=== PATIENT | female | born 1975 | race Caucasian/White ===

== ENCOUNTER 2018-02-08 10:53 | Emergency (ER) | payer BC ==
[~2018-02-08] VITALS: Ht 167.6 cm; Wt 82.0 kg
[2018-02-08 11:01] VITALS: BP 156/95; PULSE 73; RESP 24; TEMP 99; O2SAT 100
[2018-02-08 11:04] VITALS: BP 150/86; PULSE 72; RESP 24; TEMP 99; O2SAT 100
[2018-02-08] MEDS ORDERED: PRED20 PO (11:08)
[2018-02-08] MEDS ORDERED: GABA300C5 PO (11:08)
[2018-02-08] MEDS ORDERED: KETOROLAC TROMETHAMINE 30 MG/ML (IVP) VIAL IV PUSH ONE (11:30)
[2018-02-08] MEDS ORDERED: ORPHENADRINE INJ 60 MG/2 ML AMP IV ONE (11:30)
--- NOTE | 2018-02-08 11:42 | PD ---
HPI Chief Complaint: Back/ Neck Pain or Injury Time Seen by Provider: 11:18 Travel History International Travel<30 days: No Contact w/Intl Traveler<30days: No Traveled to known affect area: No History of Present Illness HPI Patient is a 42-year-old female presenting to the emergency department for evaluation of patient states it started Tuesday when she woke up. She denies any injury or trauma. She states she has a history. She has been on vacation and doing more walking than normal. She denies any bladder or bowel incontinence, no saddle paresthesia, no radiation of pain down her leg. Patient reports calling her doctor yesterday and being prescribed prednisone. She has taken 60 mg yesterday and 40 mg today. She is not taking any other anti -inflammatories or pain medication other than gabapentin at night which she normally takes. She denies any other medical history. Symptom onset was sudden , symptoms are severe in nature so much so that she called 911 and EMS had a difficult time getting her on the stretcher. Patient will not ambulate, she states that she cannot ambulate due to the pain. [facility] Past Medical History Diminished Hearing: No Medical other: Yes (TORN DISC HX OF) ?: Not LMP: 01/17/18 : 2 Para: 2 Tubal Ligation: Yes Past Surgical History Appendectomy: Yes Section: Yes (X 2) Gynecologic Surgery: Yes (C -SEC X 2) Social History Alcohol Use: No Tobacco Use: No Substance Use: No Allergies-Medications (Allergen,Severity, Reaction): Coded Allergies: No Known Allergies (Verified Allergy, Unknown, 02/08/18) Reported Meds & Prescriptions Reported Meds & Active Scripts Active Reported Prednisone 20 Mg Tab 20 Mg PO DAILY 40 MG twice a day x 3 days, then 20 MG daily x 3 days, then 10 MG daily x 3 days Gabapentin 300 Mg Cap 300 Mg PO HS Review of Systems Except as stated in HPI: all other systems reviewed are Neg Musculoskeletal: Positive: Myalgias, Cramping, Pain Physical Exam Narrative GENERAL: Well-developed, well-nourished, alert female. Appears uncomfortable, no acute distress. SKIN: Warm and dry. HEAD: Atraumatic. Normocephalic. EYES: Pupils equal and round. No scleral icterus. No injection or drainage. ENT: No nasal bleeding or discharge. Mucous membranes pink and moist. NECK: Trachea midline. No JVD. CARDIOVASCULAR: Regular rate and rhythm. RESPIRATORY: No accessory muscle use. Clear to auscultation. Breath sounds equal bilaterally. GASTROINTESTINAL: Abdomen soft, non-tender, nondistended. Hepatic and splenic margins not palpable. MUSCULOSKELETAL: Extremities without clubbing, cyanosis, or edema. No obvious deformities. Tenderness to palpation in paraspinal musculature in lumbar region , tenderness to lumbar spine. No step off noted. NEUROLOGICAL: Awake and alert. No obvious cranial nerve deficits. Motor grossly within normal limits. Five out of 5 muscle strength in the arms and legs. Normal speech. PSYCHIATRIC: Appropriate mood and affect; insight and judgment normal. Data Data Last Documented VS Vital Signs Date Time Temp Pulse Resp B/P (MAP) Pulse Ox O2 Delivery O2 Flow Rate FiO2 02/08/18 14:24 92 18 140/72 (94) 95 Room Air 02/08/18 11:04 99.0 Orders Orders Ketorolac Inj (Toradol Inj) (02/08/18 11:30) Orphenadrine Inj (Norflex Inj) (02/08/18 11:30) Ct Lumb Spine W/O Contrast (02/08/18 ) Ed Urine Pregnancytest Poc (02/08/18 11:25) Ketorolac Inj (Toradol Inj) (02/08/18 12:30) Orphenadrine Inj (Norflex Inj) (02/08/18 12:30) Acetamin-Hydrocod 325-7.5 Mg ([place] 7.5 (02/08/18 15:00) Ed Discharge Order (02/08/18 14:46) Lidocaine 5% Patch.12 Hr (Lidoderm 5% Pa (02/08/18 15:00) MDM Medical Decision Making Medical Screen Exam Complete: Yes Emergency Medical Condition: Yes Interpretation(s) Vital Signs Date Time Temp Pulse Resp B/P (MAP) Pulse Ox O2 Delivery O2 Flow Rate FiO2 02/08/18 11:04 99.0 72 24 150/86 (107) 100 Room Air 02/08/18 11:01 99.0 73 24 156/95 (115) 100 Last Impressions Lumbar Spine CT 02/08/18 0000 Signed Impressions: Service Date/Time: Thursday, February 08, 2018 13:50 - CONCLUSION: 1. Mild degenerative disc and these are isolated to L4-5 with some loss of disc height and a mild diffuse disc bulge. 2. However, the spinal canal and neural foramina are patent throughout. No canal or foraminal stenosis. 3. Partial sacralization of L5, right greater than left. 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 Jamal Ayala MD Differential Diagnosis Radiculopathy versus sprain versus spasm versus strain versus other Narrative Course Pt is a 42 year old female presenting for eval of low back pain. Pt is not cooperative with exam, refusing to move or stand. Will medicate and obtain a Ct of the lumbar spine. IV access established and pt placed on pulse oximetry. at bedside. After medications were administered patient was observed ambulating to the bathroom. Her gait was slow but steady. CT scan of the lumbar spine shows mild degenerative disc disease isolated to L4-L5 with some loss of disc height and a mild diffuse disc bulge. The spinal canal and neural foramina are patent throughout. No canal or foraminal stenosis. Partial sacralization of L5, right greater than left. Associated degenerative osteoarthritic changes of the right SI joint. Discussed findings with patient and her , they were given a copy of the CT report. Patient was encouraged to avoid bed rest, change positions frequently, apply warm heat to the affected area, take medications as directed. She will be given a dose of Lortab and a Lidoderm patch now. She is encouraged to follow-up with her doctor when she returns home tomorrow. Patient has been verbalized understanding of instructions. Patient stable for discharge. Diagnosis Primary Impression: Lumbar radicular pain Referrals: Primary Care Physician Patient Instructions: Acute Low Back Pain (ED), Degenerative Disc Disease (DC) , General Instructions, Narcotic given in the ED Additional Instructions: Follow-up with your primary doctor Take medications as directed Apply warm heat to the affected area, continue range of motion exercises Return to emergency department for any new or worsening symptoms Med/Other Pt SpecificInfo: Prescription(s) given Scripts Hydrocodone-Acetaminophen (Hydrocodone-Acetaminophen) 5-325 mg Tab 1 TAB PO Q6H Y for PAIN, #5 TAB 0 Refills Prov: Wendy Trujillo 02/08/18 Cyclobenzaprine (Flexeril) 10 Mg Tab 10 MG PO TID Y for MUSCLE SPASM, #30 TAB 0 Refills Prov: Wendy Trujillo 02/08/18 Ketorolac (Ketorolac) 10 Mg Tab 10 MG PO TID Y for Pain Management, #30 TAB 0 Refills Prov: Wendy Trujillo 02/08/18 Lidocaine (Lidoderm) 5 % Adh..patch 1 PATCH TOPICAL DAILY Y for PAIN SCALE 1 TO 10, #14 Prov: Wendy Trujillo 02/08/18 Disposition: 01 DISCHARGE HOME Condition: Stable Wendy Trujillo Feb 08, 2018 11:42
[2018-02-08] MEDS ORDERED: ORPHENADRINE INJ 60 MG/2 ML AMP IM ONE (12:30)
[2018-02-08] MEDS ORDERED: KETOROLAC TROMETHAMINE 60 MG/2 ML (IM) VIAL IM ONE (12:30)
[2018-02-08 14:24] VITALS: BP 140/72; PULSE 92; RESP 18; O2SAT 95
--- NOTE | 2018-02-08 14:36 | RADRPT ---
EXAM DATE/TIME: 02/08/2018 13:50 [facility] COMPARISON: No previous studies available for comparison. INDICATIONS : Severe lower back pain for 4 days. RADIATION DOSE: 32.60 CTDIvol (mGy) MEDICAL HISTORY : None SURGICAL HISTORY : Tubal ligation. ENCOUNTER: Initial ACUITY: 4 - 6 days PAIN SCALE: 10/10 LOCATION: Bilateral Lumbar region. TECHNIQUE: Volumetric scanning of the lumbar spine was performed. Multiplanar reconstructions in the sagittal, coronal and oblique axial planes were performed. Using automated exposure control and adjustment of the mA and/or kV according to patient size, radiation dose was kept as low as reasonably achievable t o obtain optimal diagnostic quality images. DICOM format image data is available electronically for review and comparison. FINDINGS: Sagittal and coronal reconstruction show some early degenerative disc disease with loss of disc heigh t and diffuse disc bulge at L4-5. The body disc heights are maintained at all remaining levels. There is partial sacralization of L5 bilaterally, right worse the left. There is also some degenerative sp urring along the dorsal aspect of the right SI joint. Surgical godfrey at the base of the cecum are p robably related to a prior appendectomy. T12-L1: The thecal sac has a normal diameter. No evidence of disc bulge or protrusion. The neural foramina are patent bilaterally. L1-L2: The thecal sac has a normal diameter. No evidence of disc bulge or protrusion. The neural foramina are patent bilaterally. L2-L3: The thecal sac has a normal diameter. No evidence of disc bulge or protrusion. The neural foramina are patent bilaterally. L3-L4: The thecal sac has a normal diameter. No evidence of disc bulge or protrusion. The neural foramina are patent bilaterally. L4-L5: Mild, diffuse disc bulge. Spinal canal and neural foramina are patent. L5-S1: The thecal sac has a normal diameter. No evidence of disc bulge or protrusion. The neural foramina are patent bilaterally. CONCLUSION: 1. Mild degenerative disc and these are isolated to L4-5 with some loss of disc height and a mild dif fuse disc bulge. 2. However, the spinal canal and neural foramina are patent throughout. No canal or foraminal stenosi s. 3. Partial sacralization of L5, right greater than left. Associated degenerative osteoarthritic law es in the right SI joint. Jamal Ayala MD on February 08, 2018 at 14:28 Board Certified Radiologist. This report was verified electronically.
[2018-02-08] MEDS ORDERED: KETO10 PO (14:53)
[2018-02-08] MEDS ORDERED: CYCL10TA PO (14:53)
[2018-02-08] MEDS ORDERED: HYDR-3516 PO (14:53)
[2018-02-08] MEDS ORDERED: LIDO1ADH4 TOPICAL (14:53)
[2018-02-08] MEDS ORDERED: LIDOCAINE HCL 5% PATCH T-DERMAL ONE (15:00)
[2018-02-08] MEDS ORDERED: ACETAMINOPHEN/HYDROcodone 325 MG/7.5 MG TAB PO ONE (15:00)
[2018-02-08 15:38] VITALS: RESP 20
== END 2018-02-08 17:00 | disposition home or self-care (01) ==
LOC: NEPE 10:53
DX: M54.5 Low back pain (principal)
CPT/HCPCS: 72131; 84703; 96372; 99283; J1885; J2360